=== PATIENT | female | born 1975 | race African-American/Black ===

== ENCOUNTER 2022-06-10 10:06 | Emergency (ER) | payer OTHER, SELFPAY ==
--- NOTE | ~2022-06-10 | XR_ITS ---
EXAMINATION: XR CHEST CLINICAL INFORMATION: Chest pain COMPARISON: None TECHNIQUE: 2 views of the chest were obtained. FINDINGS: Retrocardiac left lower lobe opacity obscures the left hemidiaphragm. No pleural effusion or pneumothorax. The right lung is clear. Normal heart size. Regional skeleton intact. XR/XR chest 2V IMPRESSION: Retrocardiac left lower lobe opacity, obscuring the left hemidiaphragm, could represent atelectasis, aspiration, or pneumonia.
[2022-06-10 10:10] VITALS: BP 145/94; PULSE 76; RESP 16; TEMP 36.6; O2SAT 100; BMI 33.2
[2022-06-10 11:22] VITALS: BP 152/101; PULSE 71
[2022-06-10 11:55] VITALS: BP 162/82
[2022-06-10 12:06] LABS: MANUAL DIFF FLAG NO
[2022-06-10 12:09] LABS: Basophils Percent Auto 0.4 % (0-2); Eosinophils Absolute Auto 0.1 X10*3/uL (0.0-0.4); Eosinophils Percent Auto 1.3 % (0-4); Hemoglobin 12.2 g/dl (12.0-16.0); Imm Gran Abs Auto 0.01 X10*3/uL (0.00-0.03); Imm Gran Pct Auto 0.2 % (0.0-0.4); Lymphocytes Absolute Auto 1.6 X10*3/uL (1.2-4.9); Lymphocytes Percent Auto 35.2 % (20-40); Mean Corpuscular HGB Conc 33.9 g/dl (31.0-35.0); Mean Corpuscular Hemoglobin 27.7 pg (27.0-33.0); Mean Corpuscular Volume 81.8 fL (80.0-98.0); Mean Platelet Volume 10.2 fL (9.4-12.3); Monocytes Absolute Auto 0.4 X10*3/uL (0.1-1.2); Monocytes Percent Auto 9.4 % (2-11); Neutrophils Absolute Auto 2.4 x10*3/uL (2.0-8.3); Neutrophils Percent Auto 53.5 % (45-73); Platelet Count 294 X10*3/uL (160-400); White Blood Count 4.5 X10*3/uL (4.8-10.8)
[2022-06-10 12:21] LABS: Anion Gap 8 (12-20); Blood Urea Nitrogen 8 mg/dL (9-16); Calcium 9.4 mg/dL (8.4-10.2); Carbon Dioxide 28 mmol/L (22-29); Chloride 106 mmol/L (96-108); Estimated Glomerular Filt Rate > 60; Glucose Random 87 mg/dL (60-115); Potassium 3.9 mmol/L (3.3-5.1); Sodium 138 mmol/L (135-145)
[2022-06-10 12:28] LABS: Troponin-I High Sensitivity < 3.5 ng/L (<3.5-17.0)
[2022-06-10 13:28] VITALS: BP 157/79
--- NOTE | 2022-06-10 13:50 | ECG_ITS ---
Test Reason : chest pain Blood Pressure : / mmHG Vent. Rate : 073 BPM Atrial Rate : 073 BPM P-R Int : 174 ms QRS Dur : 074 ms QT Int : 392 ms P-R-T Axes : 034 029 035 degrees QTc Int : 431 ms Normal sinus rhythm Normal ECG No previous ECGs available Referred By: Marissa Quiles Electronically Signed By:David Pickard
--- NOTE | 2022-06-10 13:53 | ED_ITS ---
HPI - General Adult General Chief complaint: General Medical Stated complaint: High BP Time Seen by Provider: 06/10/22 13:30 Source: patient Mode of arrival: ambulatory Limitations: no limitations History of Present Illness HPI narrative: 47-year-old female who was previously healthy presents with multiple complaints. Patient tells me when she woke up this morning she started to have a slight headache and felt off balance. When she arrived to work she remembered she felt similarly in the past when her blood pressure was elevated. Therefore she had the nurse there check her blood pressure and it was noted to be elevated 140- 150/100's . It was recommended patient come into the emergency room for further evaluation. She does report some slight chest discomfort that is intermittent. It is not worsened with exertion or deep breathing or movement. No associated cough, shortness of breath, unilateral leg swelling or pain. Patient tells me she was seen at [facility] 3 months ago for candelaria lar symptoms. It was noted her blood pressure was elevated and recommended that she follow-up with her primary care doctor. Patient tells me when she did follow up her blood pressure was normalized and so she was not initiated on any medication Related Data Previous Rx's Medication Instructions Recorded doxycycline monohydrate 100 mg 100 mg PO BID #20 tabs 06/10/22 tablet Allergies Allergy/AdvReac Type Severity Reaction Status Date / Time No Known Allergies Allergy Verified 06/10/22 13:49 Review of Systems Review of Systems: Yes all other systems are reviewed and are negative Constitutional: Constitutional: Reports no additional constitutional complaints, Denies body ache(s), Denies chills, Denies fever(s), Reports headache(s) and Denies weakness Eyes: Eyes: Reports no additional eye complaints and Denies change in vision ENT: Reports system reviewed and no additional complaints, except as documented, Reports dizziness, Reports headache(s), Denies nasal congestion, Denies nasal discharge and Denies neck pain Cardiovascular: Cardiovascular: Reports no additional cardiovascular complaints, Reports chest pain, Denies leg edema and Denies dyspnea Respiratory: Respiratory: Reports no additional respiratory complaints, Denies cough and Denies dyspnea Gastrointestinal: Gastrointestinal: Reports no additional gastrointestinal complaints, Denies abdominal pain, Denies diarrhea, Denies nausea and Denies vomiting Genitourinary: Genitourinary: Reports no additional female genitourinary complaints and Denies urinary incontinence Musculoskeletal: Musculoskeletal: Reports no additional musculoskeletal complaints, Denies back pain, Denies arthralgias, Denies joint swelling, Denies neck pain, Denies numbness and Denies tingling Integumentary/Breasts: Skin/Breast: Reports system reviewed and no additional complaints, except as docu and Denies rash Neurologic: Reports system reviewed and no additional complaints, except as documented, Reports dizziness, Reports headache(s), Denies numbness, Denies tingling and Denies weakness [facility] Past Medical History Attestation statement: The following information was validated with the patient. Source: old records reviewed and nursing notes reviewed Social History Social History Advance Directives: Yes Advance Directives Information Provided: No Advance Directives on File: No Patient : No Physical Exam ED Vital Signs: Vital Signs - 24 hr 06/10/22 10:10 06/10/22 11:22 06/10/22 11:55 Temperature 97.9 F Pulse Rate 76 71 Respiratory Rate 16 Blood Pressure 145/94 H 152/101 H 162/82 H Pulse Oximetry 100 Oxygen Delivery Method Room Air 06/10/22 13:28 06/10/22 14:47 Temperature 97.5 F Pulse Rate 66 Respiratory Rate 18 Blood Pressure 157/79 H 135/79 Pulse Oximetry 99 Oxygen Delivery Method Room Air BMI result Body Mass Index 33.2 Const General: cooperative, healthy appearing and comfortable Orientation/consciousness: patient oriented x3 Limitations: no limitations HENMT Head: Yes normal to inspection Ears: hearing grossly normal bilaterally and TM's normal bilaterally General nose exam: Normal external nose present Face and sinus: Yes normal facial exam Mouth: Normal oral and palatal mucosa present Throat: Yes posterior oropharynx normal, Yes tonsils normal and Yes uvula midline Eyes General: appearance normal, both eyes and all related structures Pupils: Equal, round and reactive pupils present Neck Neck: Yes normal visual inspection, Yes full ROM, Yes no lymphadenopathy and Yes no meningeal signs Chest Chest palpation & inspection: normal inspection of the chest Resp Effort & Inspection: normal respiratory effort Auscultation: clear to auscultation bilaterally Cardio Rate: regular rate Rhythm: regular rhythm Peripheral pulses: Peripheral pulses 2+ throughout GI Inspection: Yes normal to inspection Palpation (GI): Soft to palpation and nontender Back/Spine/Pelvis Thoracic/Lumbar Spine: thoracic and lumbar spine normal to inspection Skin General skin exam: no rashes or lesions noted Neuro General: patient oriented x3, moves all extremities and no meningeal signs Cranial nerves: Yes CN's II-XII intact bilaterally, Yes Equal, round and reactive pupils present, Yes Bilaterally intact EOM present, Yes Nystagmus not present, Yes Normal facial strength present and Yes Midline tongue present Cognition (Neuro): normal cognition Gait exam (Neuro): Normal gait present Motor exam (neuro): 5/5 motor strength present throughout Sensory Exam: Normal double simultaneous stimulation for sensation Coordination: fiprpz-aw-nyej test normal, glng-kz-wnac test normal and tandem gait normal Course Course Course Narrative: Labs are unremarkable. EKG shows no ischemic changes. Symptoms are improved with blood pressure improvement. Patient received no intervention for the blood pressure. Her chest x-ray shows a left lower lobe infiltrate. She denies cough, fever or shortness of breath. Will treat with course of antibiotics and recommend follow-up with primary care doctor. Reviewed worrisome signs and symptoms of when to return to the emergency department. Comfortable discharge home. Medical Decision Making MDM Narrative Medical decision making narrative: 47-year-old female presents with reports of headache, feeling off balance and chest discomfort since waking. Patient tells me she feels it is blood pressure related. She tells me she has had previous symptoms are similar when her blood pressure has been elevated. Blood pressure on arrival 154/86. Normal neurological exam with no focal finding. Will check labs, EKG, chest x-ray. Will give aspirin, nitro and reassess -Considered PE but less likely with negative d dimer, no tachypnea/hypoxia/tachycardia or clinical findings concerning for DVT. -Considered ACS but less likely with symptoms >8 hrs with normal EKG, troponin negative. Patient was offered NTG by nursing but chest pain resolved prior to administration so it was held. No reports of exertional symptoms concerning for angina. -Considered hypertensive related. Feels better with blood pressure 130 systolic at discharge with no intervention Differential Diagnosis Differential Diagnosis: acs, pe, hypertensive urgency Medical Records Medical records reviewed: Yes I reviewed the patient's medical records. Lab Data Lab results reviewed: Yes I reviewed the patient's lab results. Result diagrams: 06/10/22 11:51 06/10/22 11:51 Labs: Lab Results 07/06/10/22 06/10/22 Range/Units 11:51 11:51 11:51 WBC 4.5 L (4.8-10.8) X10*3/uL RBC 4.40 (4.20-5.50) X10*6/uL Hgb 12.2 (12.0-16.0) g/dl Hct 36.0 L (37.0-47.0) % MCV 81.8 (80.0-98.0) fL MCH 27.7 (27.0-33.0) pg MCHC 33.9 (31.0-35.0) g/dl RDW 13.0 (11.0-16.0) % Plt Count 294 (160-400) X10*3/uL MPV 10.2 (9.4-12.3) fL Immature Gran % (Auto) 0.2 (0.0-0.4) % Neut % (Auto) 53.5 (45-73) % Lymph % (Auto) 35.2 (20-40) % [place] % (Auto) 9.4 (2-11) % Eos % (Auto) 1.3 (0-4) % Baso % (Auto) 0.4 (0-2) % Lymph # (Auto) 1.6 (1.2-4.9) X10*3/uL [place] # (Auto) 0.4 (0.1-1.2) X10*3/uL Eos # (Auto) 0.1 (0.0-0.4) X10*3/uL Baso # (Auto) 0.0 (0.0-0.2) X10*3/uL Abs Immat Gran (auto) 0.01 (0.00-0.03) X10*3/uL Absolute Neuts (auto) 2.4 (2.0-8.3) x10*3/uL Absolute Nucleated RBC 0.000 (0.0-0.012) X10*3/uL Nucleated RBC % (auto) 0.0 (0.0-0.2) /100WBC PT (10.0-13.1) SEC INR (0.9-1.1) D-Dimer High Sensitivty NG/ML Sodium 138 (135-145) mmol/L Potassium 3.9 (3.3-5.1) mmol/L Chloride 106 (96-108) mmol/L Carbon Dioxide 28 (22-29) mmol/L Anion Gap 8 L (12-20) BUN 8 L (9-16) mg/dL Creatinine 0.73 (0.5-1.4) mg/dL Estim Creat Clear Calc 112.0 Estimated GFR > 60 Random Glucose 87 (60-115) mg/dL Calcium 9.4 (8.4-10.2) mg/dL Magnesium (1.6-2.6) mg/dL Total Bilirubin (0.0-1.0) mg/dL Direct Bilirubin (0.0-0.5) mg/dL AST (5-31) U/L ALT (0-31) U/L Alkaline Phosphatase (39-117) U/L Troponin I High Sens < 3.5 (<3.5-17.0) ng/L Total Protein (6.5-8.0) g/dL Albumin (3.5-5.0) g/dL 06/10/22 06/10/22 Range/Units 15:17 15:17 WBC (4.8-10.8) X10*3/uL RBC (4.20-5.50) X10*6/uL Hgb (12.0-16.0) g/dl Hct (37.0-47.0) % MCV (80.0-98.0) fL MCH (27.0-33.0) pg MCHC (31.0-35.0) g/dl RDW (11.0-16.0) % Plt Count (160-400) X10*3/uL MPV (9.4-12.3) fL Immature Gran % (Auto) (0.0-0.4) % Neut % (Auto) (45-73) % Lymph % (Auto) (20-40) % [place] % (Auto) (2-11) % Eos % (Auto) (0-4) % Baso % (Auto) (0-2) % Lymph # (Auto) (1.2-4.9) X10*3/uL [place] # (Auto) (0.1-1.2) X10*3/uL Eos # (Auto) (0.0-0.4) X10*3/uL Baso # (Auto) (0.0-0.2) X10*3/uL Abs Immat Gran (auto) (0.00-0.03) X10*3/uL Absolute Neuts (auto) (2.0-8.3) x10*3/uL Absolute Nucleated RBC (0.0-0.012) X10*3/uL Nucleated RBC % (auto) (0.0-0.2) /100WBC PT 13.1 (10.0-13.1) SEC INR 1.1 (0.9-1.1) D-Dimer High Sensitivty 159 NG/ML Sodium (135-145) mmol/L Potassium (3.3-5.1) mmol/L Chloride (96-108) mmol/L Carbon Dioxide (22-29) mmol/L Anion Gap (12-20) BUN (9-16) mg/dL Creatinine (0.5-1.4) mg/dL Estim Creat Clear Calc Estimated GFR Random Glucose (60-115) mg/dL Calcium (8.4-10.2) mg/dL Magnesium 1.9 (1.6-2.6) mg/dL Total Bilirubin 0.3 (0.0-1.0) mg/dL Direct Bilirubin 0.2 (0.0-0.5) mg/dL AST 16 (5-31) U/L ALT 17 (0-31) U/L Alkaline Phosphatase 75 (39-117) U/L Troponin I High Sens (<3.5-17.0) ng/L Total Protein 7.4 (6.5-8.0) g/dL Albumin 4.3 (3.5-5.0) g/dL Imaging Data Chest x-ray: Attestation: I personally reviewed and interpreted this imaging study as follows: Radiologist's impression: [address] [id number] XRay Report Signed Patient: Norberto Yousif MR#: [id number] : 1975 Acct:[id number] Age/Sex: 47 / F ADM Date: 06/10/22 Loc: HO.ED Attending Dr: Ordering Physician: Marissa Quiles NP Date of Service: 06/10/22 Procedure(s): XR chest 2V Accession Number(s): [id number] cc: Marissa Quiles CLIENT RETENTION SPECIALIST~ EXAMINATION: XR CHEST CLINICAL INFORMATION: Chest pain COMPARISON: None TECHNIQUE: 2 views of the chest were obtained. FINDINGS: Retrocardiac left lower lobe opacity obscures the left hemidiaphragm. No pleural effusion or pneumothorax. The right lung is clear. Normal heart size. Regional skeleton intact. XR/XR chest 2V IMPRESSION: Retrocardiac left lower lobe opacity, obscuring the left hemidiaphragm, could represent atelectasis, aspiration, or pneumonia. ECG Data Attestation: I personally reviewed and interpreted this ECG as follows: Interpretation: Normal sinus rhythm with a rate of 73, normal TN, normal QRS, normal QT Discharge Plan Discharge Clinical Impression: Pneumonia, Atypical chest pain Patient Disposition: Home, Self-Care Instructions: Chest Pain (DC), Pneumonia (ED) Additional Instructions: Your blood work is reassuring. Your chest x-ray shows pneumonia in your left lower lung. Complete the antibiotics and follow-up with her primary care doctor to make sure that the pneumonia has improved Your blood pressure improved without any medical intervention Prescriptions: New doxycycline monohydrate 100 mg tablet 100 mg PO BID Qty: 20 0RF Referrals: Physician,Unknown J [Primary Care Provider] - 2 weeks (PCP) Stand Alone Forms: Work/School Release
[2022-06-10] MEDS: Aspirin 81 MG TAB.CHEW 324 MG PO (14:41)
[2022-06-10 14:47] VITALS: BP 135/79; PULSE 66; RESP 18; TEMP 36.4; O2SAT 99
--- NOTE | 2022-06-10 14:48 | PC.NURSE ---
patient a/o x4 . pearrla . heart rate regular at 70 beats . patient reports 0/10 chest pain at this time . nitro held . N.P Symone aware . damaso assessment completed . no drifted noted when patient closed eyes and held hands out . equal strength noted bilaterally upper and lower extremities . patient had steady gate to and from the bathroom . no c/o of dizziness. skin pink warm and dry . lungs clear . abdomen soft and non distended . positive bowels sounds in all four quadrants . IV placed in left AC patient didn't tolerate and requested to be taken out , crying saying it was causing 10/10 pain level . it was removed . provider aware . patient aware of plan of care .
[2022-06-10 15:32] LABS: INTERNATIONAL NORM RATIO 1.1 (0.9-1.1); Prothrombin Time 13.1 SEC (10.0-13.1)
[2022-06-10 15:39] LABS: Alanine Aminotransferase 17 U/L (0-31); Albumin Level 4.3 g/dL (3.5-5.0); Alkaline Phosphatase 75 U/L (39-117); Aspartate Amino Transferase 16 U/L (5-31); Bilirubin Direct 0.2 mg/dL (0.0-0.5); Bilirubin Total 0.3 mg/dL (0.0-1.0); Magnesium 1.9 mg/dL (1.6-2.6); Total Protein 7.4 g/dL (6.5-8.0)
[2022-06-10 15:47] LABS: D Dimer High Sensitivity 159 NG/ML
== END 2022-06-10 18:38 | disposition home or self-care (01) ==
PROVIDERS: Nurse Practitioner Family; Emergency Provider Emergency Medicine Emergency Medical Services
DX: J18.9 Pneumonia, unspecified organism (principal); R07.89 Other chest pain
CPT/HCPCS: 36415; 71046; 80048; 80076; 83735; 84484; 85025; 85379; 85610; 93005; 99284

== ENCOUNTER → 2022-07-06 10:01 | Outpatient (BNVA) | payer OTHER, SELFPAY | PROVIDERS: Visit Provider Physician Assistant Medical | DX: M67.432 Ganglion, left wrist (principal); G56.03 Carpal tunnel syndrome, bilateral upper limbs | CPT/HCPCS: 99203 ==

== ENCOUNTER → 2022-07-27 13:03 | Outpatient (BNVA) | payer OTHER, SELFPAY | PROVIDERS: Visit Provider Physician Assistant Medical | DX: M67.432 Ganglion, left wrist (principal); G56.03 Carpal tunnel syndrome, bilateral upper limbs | CPT/HCPCS: 99213 ==

== ENCOUNTER 2022-08-11 13:30 | Outpatient (RCR) | payer OTHER, SELFPAY ==
--- NOTE | 2022-07-14 15:10 | MHC.OT.EP ---
[address] [phone] Occupational Therapy Plan of Care Date of Evaluation: 07/14/22 Diagnosis: Rigo carpal tunnel syndrome Assessment: Pt. is a 47 y/o female referred to OT w/ bilateral carpal tunnel syndrome. Pt. reports approx one year history of worsening thenar pain that radiates to volar forearms. She states the pain is worse at night and is experiencing difficulty performing IADL's and work related tasks due to pain and decreased strength in B hands. A 43.2% limitation is reported per the Quick DASH assessment. Pt. has pre-jaswinder wrist cock up splints that she is wearing during the night with good effect. Pt. would benefit from skilled OT services to address noted barriers and assist in return to PLOF. Frequency and Duration: The patient will be seen 2x/wk for 4 weeks Short Term Goals: Pain free with BADL's/IADL's IND with orthosis wear IND with progression of HEP Improve B refurbish technician strength by 10# Quick DASH <15% Usp Goals: Same as above Treatment Plan: Therapeutic Exercise Therapeutic Activity Home Exercise Program Splinting Patient Education Edema Control Ultrasound Paraffin Fluidotherapy MHP Cold Packs Soft Tissue Mobilization Kinesiotaping Electronically Signed By: Daxa Pearl, OTR/L Please Sign and return to therapist. Thank you once again for your referral.
== END 2022-09-14 14:14 | disposition home or self-care (01) ==
LOC: HO.OT 13:30
PROVIDERS: Visit Provider Physician Assistant Medical
DX: G56.03 Carpal tunnel syndrome, bilateral upper limbs (principal)
CPT/HCPCS: 97018; 97035; 97110; 97140; 97165